=== PATIENT | female | born 1945 | race African-American/Black ===

== ENCOUNTER 2021-09-19 10:31 | Emergency (ER) | payer MEDICARE, SELFPAY ==
[2021-09-20 00:47] LABS: SARS-CoV-2 PCR by NAA DETECTED (NotDetected)
== END 2021-09-19 12:07 | disposition home or self-care (01) ==
LOC: NAV ERS 10:31
DX: U07.1 COVID-19 (principal); J04.0 Acute laryngitis; I10 Essential (primary) hypertension; E11.9 Type 2 diabetes mellitus without complications; E78.5 Hyperlipidemia, unspecified; E78.00 Pure hypercholesterolemia, unspecified
CPT/HCPCS: 71046; U0003; U0005

== ENCOUNTER 2021-09-27 11:21 | Emergency (ER) | payer MEDICARE, SELFPAY | END 2021-09-27 12:04 | disposition home or self-care (01) | LOC: NAV ERS 11:21 | DX: Z20.822 Contact with and (suspected) exposure to COVID-19 (principal); E11.9 Type 2 diabetes mellitus without complications; E78.5 Hyperlipidemia, unspecified; E78.00 Pure hypercholesterolemia, unspecified; I10 Essential (primary) hypertension | CPT/HCPCS: 99283 ==

== ENCOUNTER 2022-06-29 21:44 | Emergency (ER) | payer MEDICARE ==
[2022-06-29] MEDS ORDERED: Ibuprofen 800 MG TAB ONE (22:24)
[2022-06-29] MEDS ORDERED: Acetaminophen 500 MG TAB ONE (22:24)
[2022-06-29] MEDS ORDERED: cefTRIAXone\\ROCEPHIN 2 GM VIAL ONE (22:34)
[2022-06-29 22:46] LABS: ALT (SGPT) 27 U/L (8-55); AST (SGOT) 18 U/L (5-34); Albumin 3.9 g/dL (3.4-4.8); Alkaline Phosphatase 101 U/L (40-110); Anion Gap 17 mmol/L (10-20); BUN (Urea Nitrogen) 9 mg/dL (9.8-20.1); Bilirubin, Total 0.5 mg/dL (0.2-1.2); Calc. Creatinine Clearance 0 mL/min (70-130); Carbon Dioxide 21 mmol/L (23-31); Chloride 98 mmol/L (98-107); Estimated GFR 80; Globulin 3.9 g/dL (2.4-3.5); Glucose 419 mg/dL (83-110); Potassium 3.9 mmol/L (3.5-5.1); Protein, Total 7.8 g/dL (5.8-8.1); Sodium 132 mmol/L (136-145)
[2022-06-29 22:57] LABS: #Basophils 0.1 thou/uL (0.0-0.2); #Lymphocytes 1.4 thou/uL (1.20-3.40); #Monocytes 0.8 thou/uL (0.11-0.59); #Neutrophils 5.2 thou/uL (1.40-6.50); %Basophils 1.5 % (0.0-1.0); %Eosinophils 0.2 % (0.0-10.0); %Lymphocytes 18.7 % (21.0-51.0); %Monocytes 10.1 % (0.0-10.0); %Neutrophils 69.5 % (42.0-75.0); Hemoglobin 13.5 g/dL (12.0-16.0); MDiff Complete? YES; Mean Platelet Volume 10.2 fL (7.4-10.4); Platelet Count 216 thou/uL (130-400); Red Blood Cell (RBC) Count 3.96 mill/uL (4.20-5.40); White Blood Cell (WBC) Count 7.5 thou/uL (4.8-10.8)
[2022-06-29 22:59] LABS: Macrocytosis SLIGHT = 6-15 cells (100X) (0-5/hpf)
[2022-06-29 22:59] LABS: SARS-CoV-2 NAA Rapid Test Not Detected (NotDetected)
[2022-06-29] MEDS ORDERED: Azithromycin 500 MG VIAL ONE (23:00)
[2022-06-29] MEDS ORDERED: methylPREDNISolone Sod Succ/PF 125 MG/2 ML VIAL ONE (23:00)
[2022-06-29] MEDS ORDERED: Sodium Chloride 0.9% 1,000 ML ONE (23:00)
[2022-06-29] MEDS ORDERED: Insulin Regular 300 UNITS/3 ML VIAL ONE (23:08)
[2022-06-30] MEDS ORDERED: Albuterol Sulfate 2.5 mg/3 ml Neb ONE (00:52)
[2022-06-30 00:54] LABS: Bilirubin Negative (Negative); Blood, Urine Small (Negative); Clarity Clear (Clear); Glucose, Urine (Dipstick) 500 mg/dL (Negative); Ketone, Urine Negative (Negative); Leukocyte Negative (Negative); Nitrite Negative (Negative); Protein, Urine (Dipstick) Negative (Neg-Trace); Specific Gravity, Urine 1.015 (1.005-1.030); Urobilinogen 0.2 mg/dL (Less than 2)
[2022-06-30 00:57] LABS: Bacteria/HPF None Seen HPF (None Seen)
[2022-06-30 01:16] LABS: Lactic Acid 2.4 mmol/L (0.5-2.2)
[2022-06-30] MEDS ORDERED: Sodium Chloride 0.9% 500 ML ONE (01:34)
== END 2022-06-30 02:02 | disposition short-term general hospital (02) ==
LOC: NAV ERS 21:44
DX: A41.9 Sepsis, unspecified organism (principal); J18.9 Pneumonia, unspecified organism; E11.65 Type 2 diabetes mellitus with hyperglycemia; E78.00 Pure hypercholesterolemia, unspecified; I10 Essential (primary) hypertension; Z79.899 Other long term (current) drug therapy; Z79.84 Long term (current) use of oral hypoglycemic drugs
CPT/HCPCS: 51701; 71045; 80053; 82962; 83605; 84484; 85025; 87040; 87804 ×2; 96365; 96367; 96375; 99285; U0002; 36416; 81003; 81015; 36415-59; J0456; J0696; J1815; J2930; J3370; J7030; J7050; J7611; J7620

== ENCOUNTER 2024-02-29 09:45 | Emergency (ER) | payer OTHER, MEDICAID ==
[2024-02-29] MEDS ORDERED: Ibuprofen 200 MG TAB ONE (10:06)
== END 2024-02-29 10:13 | disposition home or self-care (01) ==
LOC: NAV ERS 09:45
DX: S16.1XXA Strain of muscle, fascia and tendon at neck level, initial encounter (principal); M54.6 Pain in thoracic spine; E11.9 Type 2 diabetes mellitus without complications; E78.00 Pure hypercholesterolemia, unspecified; I10 Essential (primary) hypertension; V89.2XXA Person injured in unspecified motor-vehicle accident, traffic, initial encounter; Z79.84 Long term (current) use of oral hypoglycemic drugs; Z79.899 Other long term (current) drug therapy
CPT/HCPCS: 99283